=== PATIENT | male | born 1960 | race Caucasian/White ===

== ENCOUNTER 2016-05-26 13:51 | Emergency (ER) | payer MEDICAID ==
[2016-05-26] MEDS ORDERED: Ketorolac 60 MG/2 ML SDV IM ONE (14:22)
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
[2016-05-26 15:38] VITALS: BP 120/79
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
== END 2016-05-26 15:47 ==
LOC: MW.ED 13:51
DX: S00.83XA Contusion of other part of head, initial encounter (principal); F17.210 Nicotine dependence, cigarettes, uncomplicated; Y04.0XXA Assault by unarmed brawl or fight, initial encounter
CPT/HCPCS: 70150; 70450; 96372; 99284; J1885; 99283

== ENCOUNTER 2019-04-21 21:07 | Emergency (ER) | payer MEDICAID, SELFPAY ==
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
== END 2019-04-21 21:35 | disposition home or self-care (01) ==
LOC: MW.ED 21:07
DX: Z00.00 Encounter for general adult medical examination without abnormal findings (principal)
CPT/HCPCS: 99282; 99283